=== PATIENT | female | born 1960 | race Hispanic/Latino ===

== ENCOUNTER 2018-08-29 09:18 | Emergency (ER) | payer BC, OTHER ==
[2018-08-29 09:36] VITALS: BMI 32.9
[2018-08-29 09:51] VITALS: BP 156/104; PULSE 97; RESP 20; TEMP 98.4; O2SAT 99
--- NOTE | 2018-08-29 10:11 | C.PDOC ---
History Of Present Illness 57 y/o female presents to ED complaining of an itchy rash to her lower back x2 days. States she went outdoors and got a few bug bites on her knees but is unsure if its the same on her back. She reports she tried benadryl and hydrocortisone without any relief, last took benadryl this morning 5 hours prior. Hasnt tried any topical treatment for the rash. She notes improvement of the itchiness of the rash with benadryl. Denies fever or chills. No pustule like appearance to rash. She denies recent hiking or new food or new detergents. No vaginal rash or vaginal d/c. No urinary complaints. Vaccines fully UTD. Chief Complaint (Nursing): Abnormal Skin Integrity History Per: Patient History/Exam Limitations: no limitations Onset/Duration Of Symptoms: Days Current Symptoms Are (Timing): Still Present Past Medical History Reviewed: Historical Data, Nursing Documentation, Vital Signs Vital Signs: Last Vital Signs Temp 98.4 F 08/29/18 09:35 Pulse 97 H 08/29/18 09:35 Resp 20 08/29/18 09:35 BP 156/104 H 08/29/18 09:35 Pulse Ox 99 08/29/18 09:35 Primary Care Provider: Non [facility] Provider, - Medical History PMH: Gall Bladder Disease Denies: Chronic Kidney Disease Surgical History: Cholecystectomy, Endoscopy - [facility] Procedures OTHER LOCAL DESTRUC SKIN (10/28/14) Family History: States: No Known Family Hx - Social History Hx Alcohol Use: No Hx Substance Use: No - Immunization History Hx Tetanus Toxoid Vaccination: No Hx Influenza Vaccination: No Hx Pneumococcal Vaccination: No Review Of Systems Constitutional: Negative for: Fever, Chills, Weakness, Malaise Eyes: Negative for: Pain, Vision Change, Redness ENT: Negative for: Ear Pain, Ear Discharge, Nose Congestion, Mouth Pain Cardiovascular: Negative for: Chest Pain, Edema Respiratory: Negative for: Cough, Shortness of Breath Gastrointestinal: Negative for: Nausea, Vomiting, Abdominal Pain, Diarrhea, Constipation, Melena, Hematochezia, Rectal Pain Genitourinary: Negative for: Dysuria, Frequency, Hematuria, Vaginal Discharge, Vaginal Bleeding Musculoskeletal: Negative for: Neck Pain, Shoulder Pain, Back Pain, Hand Pain Skin: Positive for: Rash (lower back). Negative for: Jaundice, Bruising Neurological: Negative for: Weakness, Numbness, Incoordination, Headache Psych: Negative for: Anxiety, Depression Physical Exam - Physical Exam Appears: Well, Non-toxic, No Acute Distress Skin: Warm, Dry, Rash (non vesicular, non dermatomal. macular papular differing sized lesions ~1-1.5cm in cicumfrence ) Head: Atraumatic, Normacephalic, No Tenderness, No Laceration Eye(s): bilateral: Normal Inspection, PERRL, EOMI, Abnormal Pupil Ear(s): Bilateral: Normal, TM Erythema, TM Dull Nose: Normal Oral Mucosa: Moist Tongue: Normal Appearing Lips: Normal Appearing, No Swelling, No Contusion Teeth: Normal Dentition Gingiva: Normal Appearing, No Erythema, No Ulceration Throat: Normal, No Erythema, No Exudate, No Drooling, No Mass Neck: Normal, Normal ROM, No Midline Cervical Tenderness, No Paracervical Tenderness, Supple, Other (no meningeal signs) Cardiovascular: Rhythm Regular, No Murmur Respiratory: Normal Breath Sounds, No Rales, No Rhonchi, No Wheezing Gastrointestinal/Abdominal: Soft, No Tenderness Back: Other (multiple mildly erythematous macular papular lesions to lower back above the gluteal cleft, no signs of crepitus or tenderness to palpation, no severe erythema or upward streaking, no fluctuance or induration) Extremity: No Swelling Extremity: Bilateral: Atraumatic, Normal Color And Temperature, Normal ROM Neurological/Psych: Oriented x3, Normal Speech, Normal Cognition Gait: Steady ED Course And Treatment O2 Sat by Pulse Oximetry: 99 (RA) Pulse Ox Interpretation: Normal Medical Decision Making Medical Decision Makin57 y/o female presents to ED complaining of an itchy rash to her lower back x2 days. No oral lesions noted. Macular papular rash, non varicella appearing. No single dermatome placement of rash. Above gluteal cleft but no noted pilonidal cyst or abscess noted. No fall or trauma to associated area. No midline rash or tenderness. Appears non bacterial Likely fungal rash vs local dermatitis. Plan: --Benadryl 25 mg PO 1114 symptoms improved per pt Pt eloped prior to recieving final papers and final re-eval. Disposition - Disposition Referrals: Jayjay Hassan MD [Staff Provider] - Prescription [facility] [Outside] [facility] [Outside] [facility] [Outside] Disposition: ELOPEMENT - ER ONLY Disposition Time: 11:10 Condition: STABLE Additional Instructions: JOAQUIN MALDONADO, thank you for letting us take care of you today. Your provider was Ady Hwang and you were treated for RASH ON LOWER BACK. The emergency medical care you received today was directed at your acute symptoms. If you were prescribed any medication, please fill it and take as directed. It may take several days for your symptoms to resolve. Return to the Emergency Department if your symptoms worsen, do not improve, or if you have any other problems. Please contact your doctor or call one of the physicians/clinics you have been referred to that are listed on the Patient Visit Information form that is included in your discharge packet. Bring any paperwork you were given at discharge with you along with any medications you are taking to your follow up visit. Our treatment cannot replace ongoing medical care by a primary care provider outside of the emergency department. Thank you for allowing the [email or web address] team to be part of your care today. If you had an X-Ray or CT scan: A Radiologist will review the ED reading if any change in treatment is needed we will contact you. If you had a blood, urine, or wound culture: It will take several days for the results, if any change in treatment is needed we will contact you. If you had an STI test: It will take 48 hours for the results. Please call after 1 week if you have not heard back. Prescriptions: Clotrimazole 1% Cream [Lotrimin 1% CREAM] 1 applic EXT Q12H 30 Days #1 tube Instructions: Skin Rash, Fungal Skin Rash Forms: [facility] ([place]) - Clinical Impression Clinical Impression: Skin irritation, Skin lesion - Scribe Statement The provider has reviewed the documentation as recorded by the Susan Fischer Provider Attestation: All medical record entries made by the Analiibcarlita were at my direction and personally dictated by me. I have reviewed the chart and agree that the record accurately reflects my personal performance of the history, physical exam, medical decision making, and the department course for this patient. I have also personally directed, reviewed, and agree with the discharge instructions and disposition.
[2018-08-29] MEDS ORDERED: DiphenhydrAMINE 12.5 mg/5 ml LIQ UD (5 ml) PO STA (10:24)
== END 2018-08-29 11:35 | disposition left against medical advice (07) ==
LOC: C.ER 09:18
DX: L98.9 Disorder of the skin and subcutaneous tissue, unspecified (principal)